=== PATIENT | female | born 1970 | race Caucasian/White ===

== ENCOUNTER → 2024-03-22 07:54 | Outpatient (REF) | payer OTHER, SELFPAY | LOC: HWWDC 07:54 | PROVIDERS: ATTENDING PHYSICIAN Obstetrics & Gynecology; FAMILY PHYSICIAN Family Medicine | DX: Z12.31 Encounter for screening mammogram for malignant neoplasm of breast (principal) | CPT/HCPCS: 77063; 77067 ==

== ENCOUNTER → 2025-07-04 08:17 | Outpatient (REF) | payer OTHER, SELFPAY | LOC: HWWDC 08:17 | PROVIDERS: ATTENDING PHYSICIAN Advanced Practice Midwife; FAMILY PHYSICIAN Family Medicine | DX: Z12.31 Encounter for screening mammogram for malignant neoplasm of breast (principal) | CPT/HCPCS: 77063; 77067 ==

== ENCOUNTER 2025-07-11 14:26 | Day surgery (SDC) | payer OTHER, SELFPAY ==
[2025-07-11] VITALS (18 sets, daily range): BP systolic 100–138; BP diastolic 51–71; BMI 30.2
[2025-07-11 08:07] LABS: Hematocrit 41.6 % (37.0-47.0); Hemoglobin 14.2 g/dL (12.0-16.0); Mean Corp Hgb Conc. 34.1 g/dL (33.0-37.0); Mean Corpuscular Volume 89.8 fL (81.0-99.0); Nucleated Red Blood Cells % 0 %; Platelet Count 235 10^3/uL (130-400); Red Cell Dist. Width 12.6 % (11.5-14.5)
--- NOTE | 2025-07-11 08:21 | ED.GENMED ---
History of Present Illness
General
Chief Complaint: Abdominal Pain
Source: patient
Time Seen by Provider: 07/11/25 07:45
History of Present Illness
History of Present Illness:
54-year-old female with past medical history of hypertension presenting to the emergency department for evaluation of right lower quadrant abdominal pain that began yesterday, started within the right lower quadrant and has been relatively constant
with pain described to be mostly a aching sensation with intermittent sharper bursts of pain but without any other symptoms other than loss of appetite. Patient denies any fevers, chills, rigors, nausea, vomiting, bowel changes or urinary symptoms.
She did use Tylenol few times yesterday which did seem to help with the pain. Denies any history of similar. Social history noncontributory. Surgical history was noted for previous and abdominoplasty.
Past History
Past History
ED Past Medical History: HTN
ED Past Surgical History:
Social History
Tobacco: Non-smoker
Alcohol: None
Drug: None
Personal:
Living: with family
Review of Systems
Review of Systems
All Other Systems: ROS reviewed and negative except as documented in HPI and ROS
Phy Exam
Physical Exam
Physical Exam:
GENERAL: Alert , in no apparent distress
EYE: clear conjunctiva b/l
HEAD: NCAT
ENT: mmm.
CARDIAC: Regular rate and rhythm .
LUNGS: Clear breath sounds bilaterally, no acute respiratory distress, no wheezes/rales/rhonchi
ABDOMEN: Soft, mild tenderness within the right mid to lower abdomen, no r/g, no cvat
NEUROLOGICAL: Alert and oriented
SKIN: Warm and dry, skin intact.
MUSCULOSKELETAL: well perfused.
PSYCH: Normal and appropriate interaction.
Scores
Heart Failure Risk
Heart Failure Risk Score: Not Applicable
Heart Score for Chest Pain Patients
STEMI patient?: Not applicable
Withdrawal Assessment of Alcohol
Withdrawal Assessment Completed?: Not applicable
Course
Orders/Labs/Results
Orders:
Orders
07/11/25 07:46
Test Result ONCE
07/11/25 07:58
Complete Blood Count/With Diff Urgent
Comprehensive Metabolic Panel Urgent
HCG, Serum Qualitative Screen Urgent
Lipase Urgent
07/11/25 08:20
CT Abd/pelvis W Iv Cont Urgent
Comment:
Reason For Exam: right sided abd pain
07/11/25 08:25
Urinalysis Reflex To Culture Urgent
Date Specimen was Collected: 07/11/25
Time Specimen was Collected: 08:24
Urine Microscopic Reflex Cult Urgent
Urine Culture Urgent
AMPARO Source: U
Specimen Description:
Date Specimen was Collected: 07/11/25
Time Specimen was Collected: 08:24
07/11/25 11:52
Piperacillin/Tazo 3.375 Gram [Zosyn] 3.375 gram in 50 ml IV NOW
07/11/25 12:09
Admit/Transfer Patient As Directed
Co-Sign Provider:
Level of Care: Post Proc/Surg Recovery
Assign to:: Medical/Surgical
Physician / Group: [facility]/General surgery
Diagnosis: Acute appendicitis
Reason for Overnight Stay: Standard of Care
PRN Pain Medication Management As Directed
May give lesser potent ordered pain med per pt: Yes
preference::
Protocol:: Medication orders for pain may be administered in a
manner that supports deferring to patient preference
when the pt is:
- Requesting an ordered lesser potent pain medication.
Least to most potent pain medications are defined
as: acetaminophen < NSAID < tramadol < opioids
(morphine, oxycodone, hydromorphone).
- Requesting a lesser dose of the same medication IF
ORDERED.
- Requesting a less intrusive route of administration
if both routes are prescribed by the provider (PO <
IV).
07/11/25 12:10
Code Status As Directed
Resuscitation Status: Full Code
Abnormal Lab Results
07/11/25 07/11/25
07:58 08:25
MPV 11.2 H fL
(7.4-10.4)
Total Bilirubin 1.4 H mg/dl
(0.2-1.3)
Urine Bacteria (Reflex) Moderate A
(Negative)
Urine Albumin (Reflex) 1+ A
(Neg - Trace)
07/11/25 07:58
07/11/25 07:58
Vital Signs
Initial and Last Documented VS:
Initial Vital Signs
Temp Pulse Resp BP Pulse Ox
98.5 F 64 16 137/69 98
07/11/25 06:59 07/11/25 06:59 07/11/25 06:59 07/11/25 06:59 07/11/25 06:59
Last Documented Vital Signs
Temp Pulse Resp BP Pulse Ox
98.5 F 51 16 114/64 96
07/11/25 06:59 07/11/25 09:14 07/11/25 09:14 07/11/25 11:00 07/11/25 11:45
MDM/Problems Addressed
Differential Diagnosis Includes:
Appendicitis
Renal/ureteral colic
Diverticulitis
Ovarian cyst
Pancreatitis
Urinary tract infection/pyelonephritis/cystitis
Cholelithiasis/cholecystitis
MDM/Problems Addressed:
54-year-old female presenting to the ER for evaluation of right lower quadrant abdominal pain that has been ongoing for the last 24 hours, improved with Tylenol but reoccurs. Other than some decreased p.o. intake patient is otherwise asymptomatic.
Denies fevers or infectious symptoms. Pain was localized to the right lower quadrant on exam. Will obtain CT scan to further evaluate. Patient declining anything for pain presently.
*Radiology
Radiology exam reviewed: radiology read reviewed
*Pulse Oximetry
SaO2: 97
Oxygen Mode of Delivery: Room air
Patient hypoxic: no
*Critical Care Note
Total Time (30-74mins, 75-104mins- exclusive of procedures): Not Applicable
Patient Management
Discussion with other providers: Glove Maker
Escalation/DeEscalation of care consider admission/obs:
CT read noted for possible early appendicitis. General surgery team notified, came to ED to eval patient and plan to take to OR. Will start IV zosyn. Patient continues to decline pain meds. Advised to remain NPO
ED Attending Note
-
Portions of this chart may have been created with voice recognition software.� Occasional wrong word or��sound alike� substitutions may have occurred due to the inherent limitations of voice recognition software.
Discharge Plan
Departure
Patient Disposition: Admit
Date of Disposition: 07/11/25
Time of Disposition: 11:53
Presentation/result/management discussed w/ accepting /DO: Dr. Loyd
Discharge Problem:
Acute appendicitis
Prescriptions:
No Action
lisinopril-hydrochlorothiazide 20-12.5 mg Tablet
1 tab PO DAILY
fluticasone propionate [Flonase] 50 mcg/actuation [place],Suspension
1 spray INTRANASAL DAILY
cyclosporine [Restasis] 0.05 % Dropperette
1 drp BOTH EYES Q12H
Referrals:
Vandana Hodges DO [Family Provider, Family Practice]
Interventions
Interventions:
*Risk Screen - Suicide Last Done: 07/11/25 07:00
*General Assessment Last Done: 07/11/25 07:48
*Neglect/Abuse Screening Last Done: 07/11/25 07:00
*ED- Fall Risk Assessment Last Done: 07/11/25 07:48
*ED COVID-19 Vaccine History Last Done: 07/11/25 07:48
CQ-Meimpb-Ohifgsxsmx Assessment Last Done: 07/11/25 08:02
Discharge Date and Time
Print Language: AMERICAN
[2025-07-11 08:23] LABS: HCG, Serum Qualitative Screen Negative
[2025-07-11 08:28] LABS: ALT (SGPT) 19 U/L (0-35); AST (SGOT) 17 U/L (14-36); Albumin 4.3 g/dl (3.5-5.0); Alkaline Phosphatase 41 U/L (38-126); Blood Urea Nitrogen 16 mg/dl (7-17); Calcium 9.1 mg/dl (8.4-10.2); Carbon Dioxide 28 mmol/L (22-30); Chloride 107 mmol/L (98-107); Glucose 96 mg/dl (70-99); Lipase 76 U/L (23-300); Potassium 4.1 mmol/L (3.5-5.1); Sodium 140 mmol/L (135-145); Total Protein 6.7 g/dl (6.3-8.2); eGFR > 60.00
[2025-07-11 08:48] LABS: Urine Character Clear (Clear)
[2025-07-11 09:01] LABS: Urine Squamous Cell >30 /LPF (Few)
[2025-07-11 09:02] LABS: Urine Red Blood Cell 0-2 /HPF (0-2); Urine White Cell 0-2 /HPF (0-5)
[2025-07-11] MEDS: ZOSYN 50 IV (11:57)
--- NOTE | 2025-07-11 12:29 | HPS.HSE ---
Addendum entered and electronically signed by Alex Loyd MD 07/11/25 14:19:
I saw and examined the patient.
The C[employer] Grain Farmer's note was reviewed and I agree with the note.
Comment: 24 hrs RLQ pain and tenderness without migration, never had this pain before. denies f/c/n/v. endorses anorexia. pain progressive and mod-sev. on exam ttp to right mid abdomen at location corresponding to appendix location on CT. Minimal
suprapubic ttp. AFVSS, no leukocytosis, CT with likely mild/early appendicitis and uterine fibroid. Given location of pain, imaging findings and anorexia this is highly suspicious for acute appendicitis. OCTOR for lap appy. IV abx. D/w pt and
. Informed consent obtained.
Original Note:
Family Physician
-
Family Physician: Vandana Hodges
Chief Complaint
-
RLQ pain
History of Present Illness
Ms Ricardo is a 54 yo female with a h/o HTN, x2 and abdominoplasty who presents through the ED with RLQ pain which began a little over 24 hours ago and was quite severe. Yesterday, she tried Tylenol for relief but awakened this morning
and her pain was no better. She denies nausea or vomiting but does note anorexia. She denies fevers or chills. Prior to onset of pain, she notes several days of looser stools but denies other bowel or bladder changes. On exam, she is tender to the
RLQ with +Rovsings.
Medical History
Past Medical History
Past Medical History: Reports HTN
Past Surgical History: Reports (x2) and Other (Abdominoplasty)
Additional Past Surgical History:
colonoscopy 2022 with polyps removed
Social History
Tobacco: Non-smoker
Alcohol: Occasional
Personal:
Living: With Family
Family History
Family History: Not pertinent
Allergies / Home Medications
Allergies reflects when Allergies were last updated in [employer].
Home Medications with original date entered in [employer]
Allergy/Medication List:
Patient Allergies
Allergy/AdvReac Type Severity Reaction Status Date / Time
Latex, Natural Rubber Allergy Rash Verified 07/11/25 06:58
�Medication �Instructions �Recorded �Confirmed �Type
cyclosporine 0.05 % eye drops in a 1 drp BOTH EYES Q12H Eye Condition 07/11/25 07/11/25 History
dropperette (Restasis)
fluticasone propionate 50 1 spray intranasal DAILY Allergies 07/11/25 07/11/25 History
mcg/actuation nasal
spray,suspension
lisinopril 20 1 tab PO DAILY Blood Pressure 07/11/25 07/11/25 History
mg-hydrochlorothiazide 12.5 mg
tablet
Review of Systems
-
History Source: Patient
A 12 point ROS was completed and negative except as noted: Yes
Physical Exam
Vital Signs
Vital Signs
Temp Pulse Resp BP Pulse Ox
98.5 F 51 16 114/64 96
07/11/25 06:59 07/11/25 09:14 07/11/25 09:14 07/11/25 11:00 07/11/25 11:45
Physical Exam
General: Well Developed and Well Nourished
HEENT: NormoCephalic and Moist mucous membranes
GI: Soft, Non Distended and Tender (RLQ, +Rovsing)
Skin: Warm and Dry
Neuro: Awake, Alert and AO x 3
Psych: Calm
Laboratory Results
-
07/11/25 07:58
07/11/25 07:58
Laboratory Results
Total Bilirubin 1.4 mg/dl (0.2-1.3) H 07/11/25 07:58
AST 17 U/L (14-36) 07/11/25 07:58
ALT 19 U/L (0-35) 07/11/25 07:58
Alkaline Phosphatase 41 U/L (38-126) 07/11/25 07:58
Lipase 76 U/L (23-300) 07/11/25 07:58
Data Reviewed
-
CT Scan: Image Personally Visualized and interpreted, Report Reviewed by me, Discussed with Physician and Discussed with Patient
Lab Data: Labs Reviewed by me, Discussed with Physician and Discussed with Patient
Old Records: Reviewed
Impression/Plan
-
IMPRESSION: 54 yo female presenting with just over 24h of RLQ pain and anorexia. CT imaging with fibroid uterus and possible early appendicitis. Exam and history consistent with acute appendicitis. Afebrile. No leukocytosis. VSS. UA with bacteria
but no leuks or nitrites.
PLAN:
NPO for OR today
Zosyn given in ED
Analgesics prn
SCDs for perioperative VTE ppx
--- NOTE | 2025-07-11 13:00 | CM ---
Patient seen bedside w/ spouse in ED. Initial assessment completed. Patient is a 54 yo female with a h/o HTN, x2 and abdominoplasty who presents through the ED with RLQ pain.
Patient will transfer to [facility].
Patient resides w/ spouse and sons in a [facility], 3 steps to enter from the outside. Both sons are returning to college. Patient is independent in all areas, no medical equipment reported. OP therapy in the past, nothing within this past year.
Address, point of contact and insurance verified
PCP: Vandana Hodges
Pharmacy: [facility]
Plan: CM will cont to follow patient progress. Will assess d/c needs
--- NOTE | 2025-07-11 15:35 | W.IMMPOSTOP ---
Addendum entered and electronically signed by Alex Loyd MD 07/11/25 15:39:
updated by phone
Original Note:
Surgical Immed Post Op Note
-
Primary Surgeon: Rach
Assisting Surgeon: Ellen CHAUDHARI
Pre-op Diagnosis: Acute appendicitis
Post-op Diagnosis: Same
Procedure Performed: Laparoscopic appendectomy
Anesthesia Type: GETA
Specimen / Cultures: Appendix
Estimated Blood Loss: 2cc
Complications: None immediate
Operative Findings: Mildly inflamed turgid appendix, no free fluid
--- NOTE | 2025-07-11 15:35 | OR.RPT ---
Addendum entered and electronically signed by Alex Loyd MD 07/15/25 16:13:
DOS 07/11/25
Original Note:
Operative Report
Operative Report
Primary Surgeon: Rach
Assisting Surgeon: Ellen CHAUDHARI
Pre-op Diagnosis: Acute appendicitis
Post-op Diagnosis: Same
Procedure Performed: Laparoscopic appendectomy
Anesthesia Type: GETA
Specimen / Cultures: Appendix
Estimated Blood Loss: 2cc
Complications: None immediate
Operative Findings: Mildly inflamed turgid appendix, no free fluid
Date of Surgery:
Postoperative diagnosis: Same.
Indications: This 54F developed right lower quadrant abdominal pain and on workup was found to have acute appendicitis. Laparoscopic appendectomy was elected.
Description of procedure: The patient was placed on the operating table in the supine position. General anesthesia was induced. A time-out was completed verifying correct patient, procedure, site, positioning, and special equipment prior to
beginning this procedure. An orogastric tube was placed. The abdomen was prepped and draped in the usual sterile fashion. A stab incision was made in left upper quadrant and the Veress needle was inserted. Proper position was confirmed by aspiration
and saline meniscus test. The abdomen was insufflated with carbon dioxide to a pressure of 12 mmHg. The patient tolerated insufflation well.
A 5mm optical trocar was then inserted at the left lower quadrant. The laparoscope was inserted and the abdomen inspected. No injuries from initial trocar placement or Veress needle insertion were noted. Additional trocars were then inserted in the
following locations: a 12-mm trocar at the umbilicus and a 5-mm trocar midline in the suprapubic space. The abdomen was inspected and no abnormalities were found. The table was placed in the Trendelenburg position with the right side up. The tip of
the appendix was gently grasped with an atraumatic grasper and retracted toward the patient�s feet and abdominal wall. This maneuver exposed the appendiceal blood supply which was controlled with the Ligasure device. Following this, a laparoscopic
linear cutting stapler with a 45mm keating load was deployed and used to transect the appendix at its base incorporating a small cuff of cecum. The appendix was placed in an endoscopic retrieval bag, removed through the umbilical port, and passed off
the table as a specimen.
We then turned our attention to the staple line, which was noted to be hemostatic. The pelvis was inspected and no free fluid was identified. The umbilical trocar site was closed at the fascial level laparoscopically with 2-0 PDS under direct
vision. Secondary trocars were removed under direct vision and noted to be hemostatic. The laparoscope was withdrawn and the abdomen was allowed to collapse. The skin was closed with subcuticular sutures of 4-0 monocryl and topical skin adhesive.
The orogastric tube was removed.
The patient tolerated the procedure well and was taken to the postanesthesia care unit in stable condition.
The assistance of Ellen CHAUDHARI was required due to the complexity of the procedure. During the procedure she assisted with retraction, resection, visualization and closure of the wound.
--- NOTE | 2025-07-11 15:38 | W.DS.TRANS ---
DC Summary - Spanner Operator
-
Discharge Instructions:
Discharge Diagnosis/Procedures Acute appendicitis status post laparoscopic
appendectomy
Diet As tolerated,Regular
Additional Diets Eat small meals at first as bloating is common
after surgery
Activity No strenuous activity
Additional Activity Do not lift over 15lbs for the next 2-3 weeks
Driving Restrictions No driving for 24 hours
Bathing Restrictions OK to Shower
Wound Care Allow the glue covering your incisions to flake
off on its own over the next 2-3 weeks. Avoid
swimming or soaking in tubs or pools until
incisions healed.
Instructions: Appendectomy - Discharge instructions
Stand-Alone Forms:
Changes to Home Medications: No
Discharge Medications:
DC Medications w/original date entered in [employer]
cyclosporine 0.05 % eye drops in a dropperette (Restasis) 1 drp BOTH EYES Q12H Eye Condition 07/11/25
fluticasone propionate 50 mcg/actuation nasal spray,suspension 1 spray intranasal DAILY Allergies 07/11/25
lisinopril 20 mg-hydrochlorothiazide 12.5 mg tablet 1 tab PO DAILY Blood Pressure 07/11/25
Home Medication Changes
Pending Results: No
[2025-07-11] MEDS: DILAUDID 0.25 MG IV (16:02)
[2025-07-11] MEDS: TYLENOL 650 MG PO (17:35)
== END 2025-07-11 17:49 | disposition home or self-care (01) ==
LOC: PACU 14:26
PROVIDERS: Physician Assistant Medical; ATTENDING PHYSICIAN Surgery; EMERGENCY PHYSICIAN Emergency Medicine; FAMILY PHYSICIAN Family Medicine
DX: K35.80 Unspecified acute appendicitis (principal)
CPT/HCPCS: 44970; 74177; 80053; 81003; 81015; 83690; 84703; 85025; 87086; 88304; 96365; 96375; 99285; Q9967